=== PATIENT | female | born 1960 | race Caucasian/White ===

== ENCOUNTER 2018-01-17 01:10 | Emergency (ER) | payer OTHER ==
[~2018-01-17] VITALS: Ht 162.6 cm; Wt 63.5 kg
[~2018-01-17 01:10] MED LIST: DURICEF 500 MG CAPSULE PO; OXYC1TAB9 PO
== END 2018-01-17 14:40 | disposition home or self-care (01) ==
LOC: ER 01:10
DX: R00.2 Palpitations (principal); F06.4 Anxiety disorder due to known physiological condition

== ENCOUNTER 2018-03-18 11:54 | Outpatient (CLI) | payer OTHER | END 2018-03-18 12:01 | disposition home or self-care (01) | LOC: RAD 11:54 | DX: S63.114A Dislocation of metacarpophalangeal joint of right thumb, initial encounter (principal) ==

== ENCOUNTER 2019-08-14 00:16 | Emergency (ER) | payer OTHER ==
[~2019-08-14] VITALS: Ht 160 cm; Wt 72.6 kg
[2019-08-14] MEDS ORDERED: ATIVAN0.5 M1 PO (00:29)
[2019-08-14] MEDS ORDERED: LEXAPRO20 MG PO (00:32)
== END 2019-08-14 03:09 | disposition home or self-care (01) ==
LOC: ER 00:16
DX: R00.2 Palpitations (principal)

== ENCOUNTER 2022-09-04 13:35 | Outpatient (CLI) | payer OTHER ==
[~2022-09-04 13:35] MED LIST changes: +ATIVAN0.5 M1 PO; +LEXAPRO20 MG PO
== END 2022-09-04 14:01 | disposition home or self-care (01) ==
LOC: RAD 13:35
PROVIDERS: ATTEND Orthopaedic Surgery Pediatric Orthopaedic Surgery
DX: M25.562 Pain in left knee (principal); S83.412A Sprain of medial collateral ligament of left knee, initial encounter; M25.512 Pain in left shoulder; M75.32 Calcific tendinitis of left shoulder; M75.52 Bursitis of left shoulder

== ENCOUNTER 2022-09-05 09:56 | Outpatient (CLI) | payer OTHER | END 2022-09-05 10:04 | disposition home or self-care (01) | LOC: MAMO-SONO 09:56 | PROVIDERS: ATTEND Plastic Surgery | DX: Z12.31 Encounter for screening mammogram for malignant neoplasm of breast (principal); Z98.82 Breast implant status ==

== ENCOUNTER 2023-02-06 12:41 | Outpatient (CLI) | payer OTHER | END 2023-02-06 12:43 | disposition home or self-care (01) | LOC: RAD 12:41 | PROVIDERS: ATTEND Obstetrics & Gynecology Obstetrics | DX: M99.02 Segmental and somatic dysfunction of thoracic region (principal) ==

== ENCOUNTER 2025-02-17 11:46 | Outpatient (CLI) | payer OTHER | END 2025-02-17 11:58 | disposition home or self-care (01) | LOC: RAD 11:46 | DX: M20.41 Other hammer toe(s) (acquired), right foot (principal); M20.42 Other hammer toe(s) (acquired), left foot ==